=== PATIENT | male | born 1990 | race Caucasian/White ===

== ENCOUNTER 2019-04-17 23:01 | Emergency (ER) | payer OTHER ==
[~2019-04-17] VITALS: Ht 175.3 cm; Wt 65.3 kg
[2019-04-17 23:05] VITALS: BP 110/64
--- NOTE | 2019-04-17 23:05 | NUR ---
TO BED # 08 AMBULATORY
--- NOTE | 2019-04-17 23:15 | NUR ---
28/M PRESENTS TO ED, C/O 05/25 PRESSURE-LIKE, BURNING EPIGASTRIC PAIN, RADIATING TO L SIDED ABD AND CHEST. PT REPORTS SOB. PT REPORTS NAUSEA, DENIES VOMITING, DIARRHEA, CONSTIPATION OR DYSURIA. PT AOX4, GCS 15, SKIN NORMAL, WARM AND DRY, RR EVEN AND UNLABORED. LUNG SOUNDS CLEAR BL. BS ACTIVE X4, ABD SOFT ROUND TENDER TO EPIGASTRIC. HX GERD RX OMEPRAZOLE, RANITIDINE, SULCRAFATE, NAUZENE, HYDROXYZINE
--- NOTE | 2019-04-18 00:02 | NUR ---
Dr. [place] evaluating patient at bedside.
[2019-04-18] MEDS ORDERED: DICYCLOMINE HCL LIQUID 20 MG, ALUMINUM HYD/MAG/SIMETHICONE 30 ML, LIDOCAINE VISCOUS 2% ... PO ONE ×3 (00:10)
[2019-04-18 00:36] LABS: CARBON DIOXIDE 26.6 mmol/L (21-32); POTASSIUM 3.6 mmol/L (3.5-5.1)
[2019-04-18 00:42] LABS: ALBUMIN 4.3 g/dL (3.4-5.0); TOTAL BILIRUBIN 0.9 mg/dL (0.0-1.0)
[2019-04-18 01:17] VITALS: BP 120/94
--- NOTE | 2019-04-18 01:17 | NUR ---
Patient discharged with v/s stable. Written and verbal after care instructions given and explained. Patient alert, oriented and verbalized understanding of instructions. Ambulatory with steady gait. All questions addressed prior to discharge. ID band removed. Patient advised to follow up with PMD. Rx of MYLANTA given. Patient educated on indication of medication including possible reaction and side effects. Opportunity to ask questions provided and answered.
== END 2019-04-18 01:17 | disposition home or self-care (01) ==
LOC: MED 23:01
DX: R10.13 Epigastric pain (principal); R07.89 Other chest pain
CPT/HCPCS: 36415; 80053; 83690; 96372; 99283